=== PATIENT | female | born 1970 | race Caucasian/White ===

== ENCOUNTER 2021-02-10 11:13 | Emergency (ER) | payer OTHER ==
[2021-02-10 11:31] VITALS: BP 124/79; PULSE 79; TEMP 98.4; BMI 20.5
[2021-02-10] MEDS ORDERED: KETOROLAC TROMETHAMINE 30 MG/1 ML VIAL IM ONE (12:46)
[2021-02-10] MEDS ORDERED: KETOROLAC TROMETHAMINE 30 MG/1 ML VIAL ONE (12:47)
== END 2021-02-10 13:27 | disposition home or self-care (01) ==
LOC: JERFT 11:13
PROC: 3E0233Z Introduction of Anti-inflammatory into Muscle, Percutaneous Approach (ICD-10-PCS; principal; 2021-02-10)
DX: M54.50 Low back pain, unspecified (principal); S80.02XA Contusion of left knee, initial encounter; W18.49XA Other slipping, tripping and stumbling without falling, initial encounter
CPT/HCPCS: 72100-TC-FY; 72170-TC-FY; 73564-TC-LT-FY; 73564-TC-RT-FY; 99285-25

== ENCOUNTER 2021-03-18 11:32 | Emergency (ER) | payer OTHER ==
[2021-03-18 11:49] VITALS: BP 126/83; PULSE 91; TEMP 97.8; BMI 21.1
[2021-03-18] MEDS ORDERED: IBUPROFEN 600 MG TABLET (FP) PO ONE (12:52)
[2021-03-18] MEDS ORDERED: KETOROLAC TROMETHAMINE 30 MG/1 ML VIAL IM ONE (13:17)
[2021-03-18] MEDS ORDERED: KETOROLAC TROMETHAMINE 30 MG/1 ML VIAL ONE (13:19)
== END 2021-03-18 13:24 | disposition home or self-care (01) ==
LOC: JERFT 11:32
PROC: 3E0233Z Introduction of Anti-inflammatory into Muscle, Percutaneous Approach (ICD-10-PCS; principal; 2021-03-18)
DX: M79.642 Pain in left hand (principal); W19.XXXA Unspecified fall, initial encounter; Y92.9 Unspecified place or not applicable
CPT/HCPCS: 73110-TC-LT-FY; 73130-TC-LT-FY; 99284-25

== ENCOUNTER 2021-03-26 04:17 | Day surgery (SDC) | payer OTHER ==
[2021-03-25 13:17] VITALS: BMI 21.1
[2021-03-26] MEDS ORDERED: LIDOCAINE HCL 1% PRESERVATIVE FREE - 30ML VIAL IJ ONE ×2 (11:54→12:21)
[2021-03-26] MEDS ORDERED: BUPIVACAINE HCL/PF 0.75% 10 ML VIAL NR ONE ×3 (11:55→12:33)
[2021-03-26] MEDS ORDERED: IOHEXOL 300 MG/ML INFUS..BTL IV ONE ×2 (11:55→12:25)
[2021-03-26 13:37] VITALS: PULSE 78; TEMP 98.1
[2021-03-26 13:49] VITALS: BP 130/78
== END 2021-03-26 14:00 | disposition home or self-care (01) ==
LOC: JASU-SURG 04:17
PROVIDERS: ATTEND Pain Medicine Pain Medicine
PROC: BR16YZZ Fluoroscopy of Lumbar Facet Joint(s) using Other Contrast (ICD-10-PCS; 2021-03-26)
PROC: 3E0T3BZ Introduction of Anesthetic Agent into Peripheral Nerves and Plexi, Percutaneous Approach (ICD-10-PCS; principal; 2021-03-26 12:30)
DX: M47.816 Spondylosis without myelopathy or radiculopathy, lumbar region (principal)
CPT/HCPCS: 76000-TC-FY

== ENCOUNTER 2021-08-03 04:34 | Day surgery (SDC) | payer OTHER ==
[2021-07-30 16:52] VITALS: BMI 25.4
[2021-08-03] MEDS ORDERED: BUPIVACAINE HCL/PF 0.75% 10 ML VIAL ONE (11:30)
[2021-08-03] MEDS ORDERED: LIDOCAINE HCL/PF 1% SDV 5ML VIAL ONE (11:30)
[2021-08-03] MEDS ORDERED: BUPIVACAINE HCL/PF 0.5% (5MG/ML) 10 ML VIAL ONE (11:30)
[2021-08-03] MEDS ORDERED: DEXAMETHASONE SOD PHOSPHATE 10 MG/1 ML VIAL ONE (11:30)
== END 2021-08-03 11:00 | disposition home or self-care (01) ==
LOC: JASU-SURG 04:34
PROVIDERS: ATTEND Pain Medicine Pain Medicine
DX: M54.16 Radiculopathy, lumbar region (principal)
CPT/HCPCS: J1100

== ENCOUNTER 2021-08-06 04:17 | Day surgery (SDC) | payer OTHER ==
[2021-08-05 08:32] VITALS: BMI 25.4
[2021-08-06] MEDS ORDERED: LIDOCAINE HCL/PF 1% SDV 5ML VIAL ONE (07:27)
[2021-08-06] MEDS ORDERED: DEXAMETHASONE SOD PHOSPHATE 10 MG/1 ML VIAL ONE (07:28)
[2021-08-06 12:15] VITALS: TEMP 97.2
[2021-08-06] MEDS ORDERED: LIDOCAINE HCL 1% PRESERVATIVE FREE - 30ML VIAL IJ ONE (14:00)
[2021-08-06] MEDS ORDERED: DEXAMETHASONE SOD PHOSPHATE 10 MG/1 ML VIAL IVPUSH ONE ×2 (14:02→14:12)
[2021-08-06] MEDS ORDERED: IOHEXOL 180 MG/1 ML ML IJ ONE ×2 (14:02→14:08)
[2021-08-06 14:33] VITALS: BP 112/74; PULSE 75
[2021-08-06] MEDS ORDERED: ACETAMINOPHEN 325 MG TABLET (FP) ONE (14:34)
[2021-08-06] MEDS ORDERED: ACETAMINOPHEN 325 MG TABLET (FP) PO ONE (14:40)
== END 2021-08-06 15:04 | disposition home or self-care (01) ==
LOC: JASU-SURG 04:17
PROVIDERS: ATTEND Pain Medicine Pain Medicine
PROC: 3E0R33Z Introduction of Anti-inflammatory into Spinal Canal, Percutaneous Approach (ICD-10-PCS; 2021-08-06)
PROC: 3E0R3BZ Introduction of Anesthetic Agent into Spinal Canal, Percutaneous Approach (ICD-10-PCS; principal; 2021-08-06 14:00)
DX: M54.16 Radiculopathy, lumbar region (principal)
CPT/HCPCS: 76000-TC-FY; J1100

== ENCOUNTER 2021-09-03 04:19 | Day surgery (SDC) | payer OTHER ==
[2021-09-01 14:16] VITALS: BMI 25.8
[2021-09-03 09:22] VITALS: TEMP 98.9
[2021-09-03] MEDS ORDERED: TRIAMCINOLONE ACET 40MG/1ML VIAL ONE (09:46)
[2021-09-03] MEDS ORDERED: BUPIVACAINE HCL/PF 0.5% (5MG/ML) 10 ML VIAL ONE (09:46)
[2021-09-03] MEDS ORDERED: LIDOCAINE HCL 1% PRESERVATIVE FREE - 30ML VIAL IJ ONE (10:42)
[2021-09-03] MEDS ORDERED: DEXAMETHASONE SOD PHOSPHATE 10 MG/1 ML VIAL IVPUSH ONE (10:43)
[2021-09-03] MEDS ORDERED: DEXAMETHASONE SOD PHOSPHATE 10 MG/1 ML VIAL ONE (11:02)
[2021-09-03] MEDS ORDERED: ACETAMINOPHEN 500 MG TABLET (FP) PO ONE ×2 (11:27→11:30)
[2021-09-03 12:02] VITALS: BP 127/79; PULSE 69
== END 2021-09-03 11:41 | disposition home or self-care (01) ==
LOC: JASU-SURG 04:19
PROVIDERS: ATTEND Pain Medicine Pain Medicine
PROC: 3E0R33Z Introduction of Anti-inflammatory into Spinal Canal, Percutaneous Approach (ICD-10-PCS; 2021-09-03)
PROC: B01BYZZ Fluoroscopy of Spinal Cord using Other Contrast (ICD-10-PCS; 2021-09-03)
PROC: 3E0R3BZ Introduction of Anesthetic Agent into Spinal Canal, Percutaneous Approach (ICD-10-PCS; principal; 2021-09-03 11:00)
DX: M54.16 Radiculopathy, lumbar region (principal); M48.061 Spinal stenosis, lumbar region without neurogenic claudication
CPT/HCPCS: 76000-TC-FY; J1100

== ENCOUNTER 2021-10-01 04:13 | Day surgery (SDC) | payer OTHER ==
[2021-09-29 16:00] VITALS: BMI 25.8
[2021-10-01] MEDS ORDERED: TRIAMCINOLONE ACET 40MG/1ML VIAL ONE (07:19)
[2021-10-01] MEDS ORDERED: BUPIVACAINE HCL/PF 0.5% (5MG/ML) 10 ML VIAL ONE (07:20)
[2021-10-01] MEDS ORDERED: LIDOCAINE HCL/PF 1% SDV 5ML VIAL ONE (07:20)
[2021-10-01] MEDS ORDERED: LIDOCAINE HCL 1% PRESERVATIVE FREE - 30ML VIAL INF ONE (08:50)
[2021-10-01] MEDS ORDERED: BUPIVACAINE HCL/PF 0.5% (5MG/ML) 10 ML VIAL IJ ONE (08:51)
[2021-10-01] MEDS ORDERED: TRIAMCINOLONE ACET 40MG/1ML VIAL IM ONE (08:52)
[2021-10-01 10:52] VITALS: BP 128/86; PULSE 64; TEMP 98.9
== END 2021-10-01 09:20 | disposition home or self-care (01) ==
LOC: JASU-SURG 04:13
PROVIDERS: ATTEND Pain Medicine Pain Medicine
PROC: 3E0U3BZ Introduction of Anesthetic Agent into Joints, Percutaneous Approach (ICD-10-PCS; 2021-10-01)
PROC: 3E0U33Z Introduction of Anti-inflammatory into Joints, Percutaneous Approach (ICD-10-PCS; principal; 2021-10-01 08:30)
DX: M53.3 Sacrococcygeal disorders, not elsewhere classified (principal)
CPT/HCPCS: 76000-TC-FY

== ENCOUNTER 2021-11-15 07:45 | Emergency (ER) | payer OTHER ==
[2021-11-15 07:55] VITALS: BP 127/73; PULSE 74; TEMP 98; BMI 29.2
[2021-11-15] MEDS ORDERED: diazePAM 2 MG TABLET PO ONE (10:07)
[2021-11-15] MEDS ORDERED: diazePAM 2 MG TABLET ONE (10:12)
[2021-11-15] MEDS ORDERED: LIDOCAINE 5% TOPICAL PATCH TP ONE (10:14)
[2021-11-15] MEDS ORDERED: ACETAMINOPHEN 325 MG TABLET (FP) PO ONE (10:14)
[2021-11-15] MEDS ORDERED: ACETAMINOPHEN 325 MG TABLET (FP) ONE (10:28)
[2021-11-15] MEDS ORDERED: LIDOCAINE 5% TOPICAL PATCH ONE (10:28)
== END 2021-11-15 11:42 | disposition home or self-care (01) ==
LOC: JER 07:45
DX: M54.41 Lumbago with sciatica, right side (principal)
CPT/HCPCS: 99283-25

== ENCOUNTER 2022-01-07 05:25 | Emergency (ER) | payer OTHER ==
[2022-01-07 06:23] VITALS: RESP 18; BMI 27.2
[2022-01-07] MEDS ORDERED: ACETAMINOPHEN 500 MG TABLET (FP) PO ONE (08:10)
[2022-01-07] MEDS ORDERED: diazePAM 5 MG TABLET PO ONE (08:11)
[2022-01-07] MEDS ORDERED: LIDOCAINE 5% TOPICAL PATCH TP ONE (08:14)
[2022-01-07] MEDS ORDERED: KETOROLAC TROMETHAMINE 15 MG/ML VIAL IM ONE (08:14)
[2022-01-07] MEDS ORDERED: ACETAMINOPHEN 325 MG TABLET (FP) ONE (08:15)
[2022-01-07] MEDS ORDERED: diazePAM 5 MG TABLET ONE (08:15)
[2022-01-07] MEDS ORDERED: KETOROLAC TROMETHAMINE 15 MG/ML VIAL ONE (08:16)
[2022-01-07] MEDS ORDERED: LIDOCAINE 5% TOPICAL PATCH ONE (08:16)
[2022-01-07 10:56] VITALS: BP 132/82; PULSE 82; TEMP 98.5
[2022-01-07] MEDS ORDERED: LIDOCAINE PATCH REMOVAL MC SCH (22:00)
== END 2022-01-07 11:10 | disposition home or self-care (01) ==
LOC: JER 05:25
PROC: 3E0233Z Introduction of Anti-inflammatory into Muscle, Percutaneous Approach (ICD-10-PCS; principal; 2022-01-07)
DX: M54.50 Low back pain, unspecified (principal)
CPT/HCPCS: 72100-TC-FY; 73502-TC-RT-FY; 99284-25

== ENCOUNTER 2022-01-11 04:36 | Day surgery (SDC) | payer OTHER ==
[2022-01-07 14:29] VITALS: BMI 26.9
[2022-01-11] MEDS ORDERED: LIDOCAINE HCL/PF 1% SDV 5ML VIAL ONE (07:13)
[2022-01-11] MEDS ORDERED: DEXAMETHASONE SOD PHOSPHATE 10 MG/1 ML VIAL ONE (07:13)
[2022-01-11] MEDS ORDERED: SODIUM CHLORIDE 0.9% P/F 10 ML VIAL IJ ONE (07:17)
[2022-01-11] MEDS ORDERED: LIDOCAINE HCL 1% PRESERVATIVE FREE - 30ML VIAL IJ ONE (10:36)
[2022-01-11] MEDS ORDERED: IOHEXOL 180 MG/1 ML ML IJ ONE (10:36)
[2022-01-11] MEDS ORDERED: DEXAMETHASONE SOD PHOSPHATE 10 MG/1 ML VIAL IM ONE (10:38)
[2022-01-11 11:07] VITALS: RESP 18; TEMP 97.1
[2022-01-11] MEDS ORDERED: ACETAMINOPHEN 325 MG TABLET (FP) ONE (11:23)
[2022-01-11 11:33] VITALS: BP 129/81; PULSE 63
[2022-01-11] MEDS ORDERED: ACETAMINOPHEN 325 MG TABLET (FP) PO ONE (11:45)
== END 2022-01-11 11:35 | disposition home or self-care (01) ==
LOC: JASU-SURG 04:36
PROVIDERS: ATTEND Pain Medicine Pain Medicine
PROC: 3E0R33Z Introduction of Anti-inflammatory into Spinal Canal, Percutaneous Approach (ICD-10-PCS; 2022-01-11)
PROC: 3E0R3BZ Introduction of Anesthetic Agent into Spinal Canal, Percutaneous Approach (ICD-10-PCS; principal; 2022-01-11 10:00)
DX: M54.16 Radiculopathy, lumbar region (principal)
CPT/HCPCS: 76000-TC-FY; 81025; J1100

== ENCOUNTER 2022-12-20 03:50 | Day surgery (SDC) | payer OTHER ==
[2022-12-16 12:17] VITALS: BMI 26.2
[2022-12-20] MEDS ORDERED: ceFAZolin SODIUM 1 GM VIAL ONE (07:13)
[2022-12-20] MEDS ORDERED: PROPOFOL 40 ML ONE (07:13)
[2022-12-20] MEDS ORDERED: ROCURONIUM BROMIDE 50 MG/5 ML SYRINGE ONE (07:14)
[2022-12-20] MEDS ORDERED: SUCCINYLCHOLINE CHLORIDE 200 MG/10 ML SYRINGE ONE (07:14)
[2022-12-20] MEDS ORDERED: MIDAZOLAM HCL 2 MG/2 ML SINGLE DOSE VIAL ONE (07:14)
[2022-12-20] MEDS ORDERED: SODIUM CHLORIDE 0.9% P/F 10 ML VIAL IJ ONE ×2 (07:16→07:53)
[2022-12-20] MEDS ORDERED: ceFAZolin 2 GRAM PREMIX BAG IVPB ONE (07:35)
[2022-12-20] MEDS ORDERED: oxyCODONE HCL 5 MG TABLET PO PRN (07:55)
[2022-12-20] MEDS ORDERED: DEXTROSE 5%-0.45% SALINE 1,000 ML IV SCH (08:00)
[2022-12-20] MEDS ORDERED: LACTATED RINGERS SOLUTION 1,000 ML IV SCH (08:15)
[2022-12-20 12:04] VITALS: RESP 18
[2022-12-20 12:13] VITALS: BP 132/75; PULSE 58; TEMP 98.6
== END 2022-12-20 11:00 | disposition home or self-care (01) ==
LOC: JASU-SURG 03:50
PROVIDERS: ATTEND Urology
PROC: 0TVC8ZZ Restriction of Bladder Neck, Via Natural or Artificial Opening Endoscopic (ICD-10-PCS; principal; 2022-12-20 07:30)
DX: N36.42 Intrinsic sphincter deficiency (ISD) (principal); N39.3 Stress incontinence (female) (male)
CPT/HCPCS: 51715; L8606; 94760; C1713

== ENCOUNTER 2023-07-04 04:17 | Day surgery (SDC) | payer OTHER ==
[2023-06-28 12:56] VITALS: BMI 32.8
[2023-07-04] MEDS ORDERED: LIDOCAINE HCL 2% JELLY 11 ML TP ONE ×2 (07:38→07:40)
[2023-07-04] MEDS: LIDOCAINE HCL 2% JELLY 10 ML CARTRIDGE TP ONE (07:51)
[2023-07-04] MEDS ORDERED: oxyCODONE HCL 5 MG TABLET PO PRN (08:08)
[2023-07-04 08:37] VITALS: RESP 20
[2023-07-04 12:12] VITALS: BP 120/79; PULSE 60; TEMP 97.6
== END 2023-07-04 10:10 | disposition home or self-care (01) ==
LOC: JASU-SURG 04:17
PROVIDERS: ATTEND Urology
PROC: 0TVC8ZZ Restriction of Bladder Neck, Via Natural or Artificial Opening Endoscopic (ICD-10-PCS; principal; 2023-07-04 07:30)
DX: N36.42 Intrinsic sphincter deficiency (ISD) (principal)
CPT/HCPCS: 51715; L8606